=== PATIENT | male | born 1945 | race Caucasian/White ===

== ENCOUNTER → 2018-07-08 | Outpatient (CLI) | payer MEDICARE, OTHER ==
[~2018-07-08] MED LIST: REGADENOSON 0.4 MG/5 ML DISP.SYRIN. IV ONE
--- NOTE | 2018-07-08 13:56 | PCVCIMAG ---
APPROVED REPORT Imaging Protocol: Rest Tc-99m/Stress Tc-99m 1 day Study performed: 07/08/2018 08:35:32 Indication: Chest pain Patient Location: Out-Patient Stress Nurse: Dinora Chou RN [place] Tech:Cherie JJ BreenMT Ht: 5 ft 8 in Wt: 180 lbs BSA: 1.95 m2 HR: 78 bpm BP: 151/74 mmHg BMI: 27.36 Rhythm: SR, RBBB, Bifascicular Block Medical History Medical History: HTN, Hyperlipidemia, Age Medications: Simvastatin, Lisinopril, Zetia, Fenofibrate Allergies: No known drug allergies Pretest Chest Pain Characteristics: Exertional Chest pain Exercise History: Indeterminate Physical Disabilities: Legs Resting Data Rest SPECT myocardial perfusion imaging was performed in supine position 45 minutes following the intravenous injection of 10 mCi of Tc-99m Sestamibi. Time of rest injection: 0800 Date: 07/08/2018 Administration Route: IV Administration Site: Right AC Pharmacologic Stress Pharmacologic stress test was performed by injecting Regadenoson 0.4 mg IV push over 10-15 seconds immediately followed by the intravenous injection of 34 mCi of Tc-99m Sestamibi. Time of stress injection: 914 Date: 07/08/2018 Administration Route: IV Administration Site: Right AC Gated Stress SPECT was performed 45 minutes after stress injection. The images were gated to evaluate regional wall motion and calculate left ventricular ejection fraction. Stress Test Details Stress Test: Pharmacologic stress was paired with low level exercise. Reason for pharmacologic stress test: physical limitation. HRMax Heart Rate (APMHR): 147 bpm Resting HR: 78 bpmTarget HR (85% APMHR): 124 bpm Max HR Achieved: 126 bpm % of APMHR: 85 Recovery HR: 97 bpm BP Resting BP: 151/74 mmHg Recovery BP: 148/78 mmHg ECG Resting ECG: Sinus Rhythm, RBBB, Bifascicular Block Stress ECG: Sinus Tachycardia, Bifascicular Block ST Change: Non-ischemic Arrhythmia: Atrial Tachycardias Recovery ECG: Sinus Tachycardia, Bifascicular Block Clinical Reason for Termination: Completed protocol Stress Symptoms: Chest pain, Dyspnea, Lightheaded, Nausea Exercise duration: 4 min 00 sec Exercise capacity: 1.6 METs Burning Left sternal chest pain with Lexiscan 5/10 persisting into recovery. Resolved with caffeine. Reproduced presenting symptoms of exertional dyscomfort while walking with . Study Quality Study: Good Study Data Post stress, the left ventricular ejection was 75%.. SSS: 13 SRS: 6 SDS: 7 TID = 0.94. Perfusion There is a large area of moderately reduced uptake in the basal and mid segment of the inferolateral wall which is seen on the stress images and improves on the resting images. Wall Motion Normal left ventricular wall motion. Nuclear Conclusion ECG Findings: negative for ischemia Clinical Findings: non-diagnostic Nuclear Findings: negative for ischemia Exercise Capacity: not assessed Left Ventricular Function: normal This study reveals a predominantly reversible defect in the inferior and inferolateral segments, consistent with ischemia. There is normal LV systolic function.
== END | disposition home or self-care (01) ==
LOC: PCVCIMAG 07:54
PROVIDERS: ATTEND Internal Medicine Cardiovascular Disease
DX: I10 Essential (primary) hypertension (principal); E78.00 Pure hypercholesterolemia, unspecified; K21.9 Gastro-esophageal reflux disease without esophagitis; R07.9 Chest pain, unspecified; Z79.82 Long term (current) use of aspirin; Z79.899 Other long term (current) drug therapy; Z87.891 Personal history of nicotine dependence
CPT/HCPCS: 78452; 93017; A9500; G0463; J2785

== ENCOUNTER → 2018-07-22 | Outpatient (CLI) | payer MEDICARE, OTHER | END | disposition home or self-care (01) | LOC: PCVCCLINIC 10:47 | PROVIDERS: ATTEND Internal Medicine Cardiovascular Disease | DX: I25.10 Atherosclerotic heart disease of native coronary artery without angina pectoris (principal); R94.31 Abnormal electrocardiogram [ECG] [EKG]; I10 Essential (primary) hypertension; E78.00 Pure hypercholesterolemia, unspecified; K21.9 Gastro-esophageal reflux disease without esophagitis; Z79.82 Long term (current) use of aspirin; Z87.891 Personal history of nicotine dependence; Z72.89 Other problems related to lifestyle | CPT/HCPCS: 36415; 80061; 93005; G0463 ==